=== PATIENT | female | born 1995 | race Caucasian/White ===

== ENCOUNTER 2019-03-13 11:52 | Emergency (ER) | payer BC ==
[2019-03-13] MEDS ORDERED: Tetracaine 0.5% OPTH.SOL 4 ML* 1 DROP BTL LEFT EYE ONE (13:41)
[2019-03-13] MEDS ORDERED: Fluorescein Sodium TOPICAL* 1 MG TEST STRIP OPHTHALMIC ONE (13:41)
--- NOTE | 2019-03-13 14:10 | UC ---
Eye Complaint HPI - HPI Summary HPI Summary: 23-year-old female presents with onset of left eye pain, redness, and tearing upon waking this morning. Describes as a constant irritation that is "stabbing" at time. Denies injury, visual disturbances, photophobia, FB sensation, or purulent discharge. - History of Current Complaint Chief Complaint: UCEye Stated Complaint: LT EYE PAIN Time Seen by Provider: 03/13/19 13:40 Hx Obtained From: Patient Hx Last Menstrual Period: 03/07/19 Pain Intensity: 3 - Allergies/Home Medications Allergies/Adverse Reactions: Allergies Allergy/AdvReac Type Severity Reaction Status Date / Time Penicillins Allergy Hives Verified 03/13/19 12:11 Home Medications: Home Medications Fluoxetine HCl [Prozac] 30 mg PO DAILY 03/13/19 [History Confirmed 03/13/19] PMH/Surg Hx/FS Hx/Imm Hx Previously Healthy: Yes - Denies significant PMH - Surgical History Surgical History: None - Family History Known Family History: Positive: Non-Contributory - Social History Occupation: Student Lives: With Family Alcohol Use: Occasionally Substance Use Type: None Smoking Status (MU): Never Smoked Tobacco Review of Systems All Other Systems Reviewed And Are Negative: Yes Constitutional: Negative: Fever, Chills Eyes: Positive: Drainage - Tearing, Eye Redness. Negative: Blurred Vision, Diplopia, Photophobia ENT: Positive: Negative Respiratory: Positive: Negative Cardiovascular: Positive: Negative Gastrointestinal: Positive: Negative Genitourinary: Positive: Negative Musculoskeletal: Positive: Negative Neurological: Positive: Negative Is Patient Immunocompromised?: No Physical Exam - Summary Physical Exam Summary: GENERAL APPEARANCE: Well developed, well nourished, alert and cooperative, and appears to be in no acute distress. EYES: Mild conjunctival erythema. No drainage. PERRL, EOM intact. Tetracaine and fluorosceine instilled into the left eye. No uptake of stain noted. No FB noted. Upper and lower eyelids were everted. Vision is grossly intact. Visual accuity noted. EARS: External auditory canals and tympanic membranes clear, hearing grossly intact. NOSE: No nasal discharge. THROAT: Pharynx normal No tonsilar inflammation, swelling, exudate, or lesions. Uvula midline. NECK: Neck supple, non-tender without lymphadenopathy. CARDIAC: Normal S1 and S2. No S3, S4 or murmurs. Rhythm is regular. There is no peripheral edema, cyanosis or pallor. Extremities are warm and well perfused. Capillary refill is less than 2 seconds. Peripheral pulses intact. LUNGS: Clear to auscultation without rales, rhonchi, wheezing or diminished breath sounds. ABDOMEN: Positive bowel sounds. Soft, nondistended, nontender. No guarding or rebound. No masses or hepatosplenomegally. MUSKULOSKELETAL: ROM intact to all extremities. No joint erythema or tenderness. Normal muscular development. Normal gait. SKIN: Skin normal color, texture and turgor with no lesions or eruptions. Triage Information Reviewed: Yes Vital Signs: Initial Vital Signs Temp 98.9 F 03/13/19 12:07 Pulse 64 03/13/19 12:07 Resp 18 03/13/19 12:07 BP 105/63 03/13/19 12:07 Pulse Ox 100 03/13/19 12:07 Vital Signs Reviewed: Yes Eye Complaint Course/Dx - Course Course Of Treatment: 23-year-old female presents with onset of left eye pain, redness, and tearing upon waking this morning. Describes as a constant irritation that is "stabbing" at time. Denies injury, visual disturbances, photophobia, FB sensation, or purulent discharge. Afebrile. Vital signs stable. Patient was noted to have some mild erythema of the left eye without discharge or FB noted on gross exam. Extraoccular eye movements intact. Tetracaine and fluorosceine were instilled and the eye was examined under magnification using a Wood's lamp. No uptake of stain was noted. The upper and lower eye lids were everted. No FB noted. Remainder of exam was unremarkable. Patient reported that pain improved with instillation of the tetracaine however since no obvious cause for her pain was noted on the exam I am recommending follow up with ophthalmology. She is vacationing in the area and supposed to be returning home tomorrow so I contacted [facility] and they are able to evaluate her urgently today. She is to go directly to the office from . She is in agreement with the POC. - Differential Dx/Diagnosis Differential Diagnosis/HQI/PQRI: Conjunctivitis, Corneal Abrasion, Foreign Body , Uveitis Provider Diagnosis: Acute left eye pain Discharge - Sign-Out/Discharge Documenting (check all that apply): Patient Departure All imaging exams completed and their final reports reviewed: No Studies - Discharge Plan Condition: Stable Disposition: HOME Patient Education Materials: Eye Pain (ED) Referrals: No Primary Care Phys,NOPCP [Primary Care Provider] - Kush Robbins MD [Medical Doctor] - As Soon As Possible Additional Instructions: Based on your history I suspect that you may have a small corneal abrasion however I did not see one on your exam therefore I am recommending that you be urgently evaluated by the accounting officer. I have spoke with [facility] and they would like you to go directly to the office at this time. - Billing Disposition and Condition Condition: STABLE Disposition: Home
== END 2019-03-13 14:19 | disposition home or self-care (01) ==
LOC: UCEAST 11:52
DX: H57.12 Ocular pain, left eye (principal); Z88.0 Allergy status to penicillin
CPT/HCPCS: 99202; A9270-GY; G0463